=== PATIENT | male | born 1960 | race Caucasian/White ===

== ENCOUNTER 2024-05-22 06:24 | Inpatient (IN) | payer MEDICARE ==
[~2024-05-22] VITALS: Ht 180.3 cm; Wt 90.7 kg
[2024-05-22] MEDS ORDERED: LIDOCAINE 2%-EPI 1:100,000 30 ML VIAL ONE (06:51)
[2024-05-22] MEDS ORDERED: dexaMETHasone SOD PHOSPHATE 2 ML ONE (06:51)
[2024-05-22] MEDS ORDERED: VANCOMYCIN 1 GM VIAL ONE (06:52)
[2024-05-22] MEDS ORDERED: OXYMETAZOLINE HCL NASAL SPRAY 30 ML BOTTLE NS ONE (06:52)
[2024-05-22] MEDS ORDERED: FENTANYL PF 250MCG/5ML AMPUL ONE (07:22)
[2024-05-22] MEDS ORDERED: ROCURONIUM BROMIDE 50 MG/5 ML ONE (07:23)
[2024-05-22] MEDS: POTASSIUM CL. PREMIX PERIPHER. 50 ML IV SCH (07:30)
[2024-05-22] MEDS ORDERED: LABETALOL 20 MG/4 ML VIAL ONE (07:47)
[2024-05-22] MEDS ORDERED: ACETAMINOPHEN 325 MG TABLET PO PRN ×2 (12:30→16:30)
[2024-05-22] MEDS ORDERED: ONDANSETRON HCL/PF 4 MG/2 ML VIAL IV PRN (12:30)
[2024-05-22] MEDS: IV NS 0.9% 1,000 ML IV PRN (12:55)
[2024-05-22] MEDS: HYDROMORPHONE 1 MG/1 ML DISP.SYRIN IV PRN (13:56)
[2024-05-22] MEDS ORDERED: AMLO5TAB4 PO (15:30)
[2024-05-22] MEDS ORDERED: SERT25TA PO (15:30)
[2024-05-22] MEDS ORDERED: OMEP20CA15 PO (15:30)
[2024-05-22] MEDS ORDERED: DOCU-275 PO (15:30)
[2024-05-22] MEDS ORDERED: ALBU8.5H8 IH (15:30)
[2024-05-22] MEDS ORDERED: HYDR-3980 PO (15:30)
[2024-05-22] MEDS ORDERED: ATOR20TA PO (15:30)
[2024-05-22 16:00] VITALS: BP 114/73; TEMP 99; O2SAT 97
[2024-05-22] MEDS ORDERED: Z GUARD REMEDY 4 OZ OINT TP PRN (16:30)
[2024-05-22] MEDS ORDERED: MAG HYDROX/AL HYDROX/SIMETH 30 ML UDC PO PRN (16:30)
[2024-05-22] MEDS ORDERED: ONDANSETRON HCL/PF 4 MG/2 ML VIAL IVP PRN (16:30)
[2024-05-22] MEDS ORDERED: MAGNESIUM HYDROXIDE 30 ML UDC PO PRN (16:30)
[2024-05-22] MEDS ORDERED: ALBUTEROL FS 2.5 MG/3 ML VIAL.NEB NEB PRN (17:00)
[2024-05-22] MEDS: AMLODIPINE BESYLATE 5 MG TABLET PO SCH (17:16)
[2024-05-22] MEDS: SERTRALINE HCL 25 MG TABLET PO SCH (17:19)
[2024-05-22] MEDS: VANCOMYCIN 1 GM in IV D5W 250ml IV SCH (18:40)
[2024-05-22 20:00] VITALS: BP 125/65; TEMP 98.2; O2SAT 99
[2024-05-22] MEDS: HYDROCODONE/APAP 10/325MG TABLET PO SCH (21:27)
[2024-05-22] MEDS: ATORVASTATIN 10 MG TABLET PO SCH (21:28)
[2024-05-23] MEDS: PANTOPRAZOLE 40 MG TABLET.DR PO SCH (07:58)
[2024-05-23 08:00] VITALS: BP 118/58; TEMP 98.2; O2SAT 99
[2024-05-23] MEDS: DOCUSATE SODIUM 100 MG CAPSULE PO SCH (08:18)
[2024-05-23 08:19] VITALS: BP 118/58
== END 2024-05-23 12:15 | disposition home or self-care (01) | DRG 141 ==
LOC: DS 06:24 → MED 11:36
PROVIDERS: ADMIT Internal Medicine; ATTEND Internal Medicine
PROC: 0NSR04Z Reposition Maxilla with Internal Fixation Device, Open Approach (ICD-10-PCS; principal; 2024-05-22)
PROC: 0N5T0ZZ Destruction of Right Mandible, Open Approach (ICD-10-PCS; principal; 2024-05-22)
PROC: 0NUV07Z Supplement Left Mandible with Autologous Tissue Substitute, Open Approach (ICD-10-PCS; principal; 2024-05-22)
PROC: 0NUR07Z Supplement Maxilla with Autologous Tissue Substitute, Open Approach (ICD-10-PCS; principal; 2024-05-22)
PROC: 0NST04Z Reposition Right Mandible with Internal Fixation Device, Open Approach (ICD-10-PCS; principal; 2024-05-22)
PROC: 0N5R0ZZ Destruction of Maxilla, Open Approach (ICD-10-PCS; principal; 2024-05-22)
PROC: 0NUT07Z Supplement Right Mandible with Autologous Tissue Substitute, Open Approach (ICD-10-PCS; principal; 2024-05-22)
PROC: 0NSV04Z Reposition Left Mandible with Internal Fixation Device, Open Approach (ICD-10-PCS; principal; 2024-05-22)
PROC: 0N5V0ZZ Destruction of Left Mandible, Open Approach (ICD-10-PCS; principal; 2024-05-22)
DX: S02.40CA Maxillary fracture, right side, initial encounter for closed fracture (principal); M87.9 Osteonecrosis, unspecified; S02.40DA Maxillary fracture, left side, initial encounter for closed fracture; S02.609A Fracture of mandible, unspecified, initial encounter for closed fracture; X58.XXXA Exposure to other specified factors, initial encounter; Y93.9 Activity, unspecified; Y92.9 Unspecified place or not applicable; Y99.9 Unspecified external cause status; D16.4 Benign neoplasm of bones of skull and face; D16.5 Benign neoplasm of lower jaw bone; M27.2 Inflammatory conditions of jaws; J32.0 Chronic maxillary sinusitis; T18.0XXA Foreign body in mouth, initial encounter; E78.5 Hyperlipidemia, unspecified; I10 Essential (primary) hypertension; Z79.899 Other long term (current) drug therapy
CPT/HCPCS: A4223; A4338; C1713; G0378; J0690; J1100; J1171; J2704; J3010; J3370; J3480; J3490; J7030; J7060

== ENCOUNTER 2024-09-24 07:35 | Inpatient (IN) | payer MEDICARE ==
[~2024-09-24] VITALS: Ht 180.3 cm; Wt 97.2 kg
[~2024-09-24 07:35] MED LIST: ALBU8.5H8 IH; AMLO5TAB4 PO; ATOR20TA PO; DOCU-275 PO; HYDR-3980 PO; OMEP20CA15 PO; SERT25TA PO
[2024-09-24] MEDS ORDERED: LIDOCAINE 2%-EPI 1:100,000 30 ML VIAL ONE ×2 (09:56→12:21)
[2024-09-24] MEDS ORDERED: dexaMETHasone SOD PHOSPHATE 2 ML ONE (09:56)
[2024-09-24] MEDS ORDERED: VANCOMYCIN 1 GM VIAL ONE (09:56)
[2024-09-24] MEDS ORDERED: SEVOFLURANE 250 ML BOTTLE IH ONE (10:59)
[2024-09-24] MEDS ORDERED: FENTANYL PF 250MCG/5ML AMPUL ONE (11:15)
[2024-09-24] MEDS ORDERED: FENTANYL PF 100MCG/2ML AMPUL ONE (13:06)
[2024-09-24] MEDS ORDERED: ONDANSETRON HCL/PF 4 MG/2 ML VIAL IVP PRN (14:30)
[2024-09-24] MEDS ORDERED: ACETAMINOPHEN 325 MG TABLET PO PRN (14:30)
[2024-09-24] MEDS ORDERED: MAG HYDROX/AL HYDROX/SIMETH 30 ML UDC PO PRN (15:00)
[2024-09-24] MEDS ORDERED: Z GUARD REMEDY 4 OZ OINT TP PRN (15:00)
[2024-09-24] MEDS ORDERED: MAGNESIUM HYDROXIDE 30 ML UDC PO PRN (15:00)
[2024-09-24] MEDS ORDERED: ALBUTEROL FS 2.5 MG/3 ML VIAL.NEB IH PRN (15:30)
[2024-09-24 16:00] VITALS: BP 132/61; TEMP 98.8; O2SAT 95
[2024-09-24] MEDS: SERTRALINE HCL 25 MG TABLET PO SCH (17:29)
[2024-09-24] MEDS: AMLODIPINE BESYLATE 5 MG TABLET PO SCH (17:30)
[2024-09-24] MEDS: HYDROMORPHONE INJ 2 MG/ML DISP.SYRIN IV PRN (17:34)
[2024-09-24 20:00] VITALS: BP 128/71; TEMP 98.3; O2SAT 99
[2024-09-24] MEDS: ATORVASTATIN 10 MG TABLET PO SCH (21:09)
[2024-09-24] MEDS: VANCOMYCIN 1 GM in IV D5W 250ml IV SCH (21:09)
[2024-09-24] MEDS: IV NS 0.9% 1,000 ML IV PRN (21:11)
[2024-09-25 07:12] LABS: BASOPHILS % (AUTO) 0.1 % (0.0-2.0); HEMATOCRIT 36 % (39-51); HEMOGLOBIN 11.8 g/dL (13.5-17.5); LYMPHOCYTES % (AUTO) 17.8 % (20.0-44.0); MEAN CORPUSCULAR HEMOGLOBIN 28 PG (26.0-33.0); MEAN CORPUSCULAR HGB CONC 33 g/dl (31.0-36.0); MEAN CORPUSCULAR VOLUME 85 fL (80-96); MONOCYTES # (AUTO) 0.9 K/uL (0.1-1.30); MONOCYTES % (AUTO) 8.2 % (2.0-12.0); NEUTROPHILS # (AUTO) 8.3 K/uL (1.8-8.9); NEUTROPHILS % (AUTO) 73.9 % (43.0-81.0); PLATELET COUNT (AUTO) 287 K/uL (150-450); RED BLOOD CELL COUNT(AUTO) 4.23 MIL/uL (4.5-6.0); RED CELL DISTRIBUTION WIDTH 13.1 % (11.5-15.0); WHITE BLOOD COUNT (AUTO) 11.2 K/uL (4.3-11.0)
[2024-09-25 07:22] LABS: CREATININE 1.1 mg/dL (0.6-1.3); MAGNESIUM 2.1 mg/dL (1.8-2.4); PHOSPHORUS 3.6 mg/dL (2.5-4.9); POTASSIUM 3.9 mmol/L (3.5-5.1)
[2024-09-25] MEDS: PANTOPRAZOLE 40 MG TABLET.DR PO SCH (08:41)
[2024-09-25 08:44] VITALS: BP 125/67
== END 2024-09-25 12:57 | disposition home or self-care (01) | DRG 496 ==
LOC: DS 07:35 → MED 13:59
PROVIDERS: ADMIT Nurse Practitioner Acute Care; ATTEND Nurse Practitioner Acute Care
PROC: 0NSR04Z Reposition Maxilla with Internal Fixation Device, Open Approach (ICD-10-PCS; 2024-09-24)
PROC: 0NST04Z Reposition Right Mandible with Internal Fixation Device, Open Approach (ICD-10-PCS; 2024-09-24)
PROC: 0N5R0ZZ Destruction of Maxilla, Open Approach (ICD-10-PCS; 2024-09-24)
PROC: 0NUR07Z Supplement Maxilla with Autologous Tissue Substitute, Open Approach (ICD-10-PCS; 2024-09-24)
PROC: 0NUT07Z Supplement Right Mandible with Autologous Tissue Substitute, Open Approach (ICD-10-PCS; 2024-09-24)
PROC: 0N5V0ZZ Destruction of Left Mandible, Open Approach (ICD-10-PCS; 2024-09-24)
PROC: 0N5T0ZZ Destruction of Right Mandible, Open Approach (ICD-10-PCS; 2024-09-24)
PROC: 0NPW04Z Removal of Internal Fixation Device from Facial Bone, Open Approach (ICD-10-PCS; principal; 2024-09-24 10:00)
DX: T84.69XA Infection and inflammatory reaction due to internal fixation device of other site, initial encounter (principal); S02.40CK Maxillary fracture, right side, subsequent encounter for fracture with nonunion; S02.40DK Maxillary fracture, left side, subsequent encounter for fracture with nonunion; S02.69XK Fracture of mandible of other specified site, subsequent encounter for fracture with nonunion; T81.83XA Persistent postprocedural fistula, initial encounter; Y83.8 Other surgical procedures as the cause of abnormal reaction of the patient, or of later complication, without mention of misadventure at the time of the procedure; Y92.009 Unspecified place in unspecified non-institutional (private) residence as the place of occurrence of the external cause; M27.2 Inflammatory conditions of jaws; X58.XXXD Exposure to other specified factors, subsequent encounter; E78.5 Hyperlipidemia, unspecified; I10 Essential (primary) hypertension; F41.9 Anxiety disorder, unspecified; D16.4 Benign neoplasm of bones of skull and face; J32.0 Chronic maxillary sinusitis
CPT/HCPCS: 36415; 80048-TC; 83735-TC; 84100-TC; 85025-TC; 88300-TC; 88305-TC; 88311-TC; 88312-TC; A4338; C1713; G0378; J0461; J0690; J1100; J1171; J2704; J3010; J3370; J3490; J7030; J7060

== ENCOUNTER 2025-03-05 09:56 | Inpatient (IN) | payer MEDICARE ==
[~2025-03-05] VITALS: Ht 172.7 cm; Wt 113.9 kg
[2025-03-05] MEDS ORDERED: FENTANYL PF 100MCG/2ML AMPUL ONE ×2 (11:12→13:42)
[2025-03-05] MEDS ORDERED: VANCOMYCIN 1 GM VIAL ONE (12:09)
[2025-03-05] MEDS ORDERED: dexaMETHasone SOD PHOSPHATE 2 ML ONE (12:09)
[2025-03-05] MEDS ORDERED: LIDOCAINE 2%-EPI 1:100,000 30 ML VIAL ONE (12:09)
[2025-03-05] MEDS: FENTANYL PF 100MCG/2ML AMPUL IV PRN (14:56)
[2025-03-05 16:00] VITALS: BP 117/62; TEMP 98.1; O2SAT 98
[2025-03-05] MEDS ORDERED: ACETAMINOPHEN 325 MG TABLET PO PRN (16:00)
[2025-03-05] MEDS ORDERED: ONDANSETRON HCL/PF 4 MG/2 ML VIAL IVP PRN (16:00)
[2025-03-05] MEDS: IV NS 0.9% 1,000 ML IV PRN (18:44)
[2025-03-05] MEDS: VANCOMYCIN 1 GM in IV D5W 250ml IV SCH (23:38)
[2025-03-05] MEDS: HYDROMORPHONE 1 MG/1 ML DISP.SYRIN IV PRN (23:57)
[2025-03-06 08:00] VITALS: BP 122/75; TEMP 98.1; O2SAT 96
[2025-03-06 08:28] VITALS: TEMP 98.1; O2SAT 96
== END 2025-03-06 12:05 | disposition home or self-care (01) | DRG 497 ==
LOC: DS 09:56 → MED 10:35
PROVIDERS: ATTEND Nurse Practitioner Acute Care
PROC: 0N5T0ZZ Destruction of Right Mandible, Open Approach (ICD-10-PCS; 2025-03-05)
PROC: 0NPW04Z Removal of Internal Fixation Device from Facial Bone, Open Approach (ICD-10-PCS; 2025-03-05)
PROC: 0N5R0ZZ Destruction of Maxilla, Open Approach (ICD-10-PCS; principal; 2025-03-05 13:00)
DX: T84.69XA Infection and inflammatory reaction due to internal fixation device of other site, initial encounter (principal); M27.2 Inflammatory conditions of jaws; E78.5 Hyperlipidemia, unspecified; I10 Essential (primary) hypertension; D16.5 Benign neoplasm of lower jaw bone; M89.38 Hypertrophy of bone, other site; Y83.8 Other surgical procedures as the cause of abnormal reaction of the patient, or of later complication, without mention of misadventure at the time of the procedure; Y92.009 Unspecified place in unspecified non-institutional (private) residence as the place of occurrence of the external cause
CPT/HCPCS: 36415; 86850-TC; 88300-TC; 88305-TC; 88311-TC; A4217; A4223; A4338; G0378; J0360; J0461; J0690; J1100; J1171; J2704; J3010; J3373; J3490; J7030; J7060